=== PATIENT | male | born 1970 | race Hispanic/Latino ===

== ENCOUNTER 2018-07-28 20:44 | Emergency (ER) | payer BC ==
[2018-07-28] MEDS ORDERED: Sodium Chloride 0.9% 1,000 ML IV STA (21:16)
[2018-07-28 21:36] LABS: VENOUS BLOOD GAS BASE EXCESS 4.7 mmol/L (0.0-2.0); VENOUS BLOOD GAS PCO2 51 mmHg (40-60); VENOUS BLOOD GAS PO2 33 mm/Hg (30-55); VENOUS BLOOD PH 7.39 (7.32-7.43)
[2018-07-28] MEDS ORDERED: Potassium CL 10 MEQ/50 ML 50 ML IVPB ONE (21:41)
[2018-07-28 21:51] LABS: BASO # 0.1 K/uL (0.0-0.2); BASO % 0.3 % (0.0-2.0); EOS % 0.2 % (0.0-4.0); LYMPH # 1.8 K/uL (1.0-4.3); LYMPH % 10.6 % (20.0-40.0); MEAN CELL VOLUME 88.9 fl (80.0-94.0); MEAN CORPUSCULAR HEMOGLOBIN 30.5 pg (27.0-31.0); MEAN CORPUSCULAR HGB CONC 34.3 g/dL (33.0-37.0); MEAN PLATELET VOLUME 9.2 fl (7.2-11.7); MONO # 1.7 K/uL (0.0-0.8); MONO % 10.1 % (0.0-10.0); NEUT # 13.4 K/uL (1.8-7.0); NEUT % 78.8 % (50.0-75.0); RBC 4.25 Mil/uL (4.40-5.90); RED CELL DISTRIBUTION WIDTH 12.9 % (11.5-14.5)
[2018-07-28 21:54] LABS: BLOOD UREA NITROGEN 3 mg/dl (9-20); CALCIUM 9.4 mg/dL (8.4-10.2); GFR NON-AFRICAN AMERICAN > 60
[2018-07-28] MEDS ORDERED: Potassium CL 10 MEQ/50 ML 50 ML ONE (22:07)
[2018-07-28 22:09] LABS: PROTHROMBIN TIME 11.9 Seconds (9.8-13.1)
[2018-07-28 22:11] LABS: PARTIAL THROMBOPLASTIN TIME 29.6 Seconds (25.6-37.1)
--- NOTE | 2018-07-28 22:20 | ED PDOC ---
HPI: Hypertension/Hypotension Time Seen by Provider: 07/28/18 21:01 Chief Complaint (Nursing): Palpitations Chief Complaint (Provider): Palpitations History Per: Patient History/Exam Limitations: no limitations Onset/Duration Of Symptoms: Days Current Symptoms Are (Timing): Still Present Additional Complaint(s): 48 y/o male with no significant PMHx presents to the ED for evaluation of palpitations. Patient reports that for the past three days, he has been having issues with nerves and paranoia and has today developed palpitations. Patient states that this is his third ED visit in the past two days and was diagnosed with low potassium and low sodium at [place]. Patient reports palpitations don't feel like it is beating irregularly but it just feels like "neurosis". Otherwise, patient denies chest pain, suicidal ideation, homicidal ideation, drug use and alcohol use. Patient reports of feeling safe in his home. PMD: Amol Rubi Past Medical History Reviewed: Historical Data, Nursing Documentation, Vital Signs Vital Signs: Last Vital Signs Temp Pulse 79 07/28/18 20:54 Resp 16 07/28/18 20:54 BP 147/84 07/28/18 20:54 Pulse Ox 98 07/28/18 20:54 Primary Care Provider: Procedure,Nonphys - Medical History PMH: No Chronic Diseases - Surgical History Surgical History: No Surg Hx - Family History Family History: States: Unknown Family Hx - Living Arrangements Living Arrangements: With Family - Social History Alcohol: None Drugs: Denies - Allergies Allergies/Adverse Reactions: Allergies Allergy/AdvReac Type Severity Reaction Status Date / Time No Known Allergies Allergy Verified 07/28/18 20:54 Review of Systems ROS Statement: Except As Marked, All Systems Reviewed And Found Negative Cardiovascular: Positive for: Palpitations. Negative for: Chest Pain Physical Exam - Reviewed Nursing Documentation Reviewed: Yes Vital Signs Reviewed: Yes - Physical Exam Appears: Positive for: No Acute Distress (but anxious appearing) Head Exam: Positive for: ATRAUMATIC, NORMOCEPHALIC Skin: Negative for: Normal Color (vitiligo) Eye Exam: Positive for: Normal appearance, EOMI, PERRL ENT: Positive for: Normal ENT Inspection Neck: Positive for: Normal, Painless ROM, Supple Cardiovascular/Chest: Positive for: Regular Rate, Rhythm. Negative for: Murmur Respiratory: Positive for: Normal Breath Sounds. Negative for: Respiratory Distress Gastrointestinal/Abdominal: Positive for: Normal Exam, Soft. Negative for: Tenderness Back: Positive for: Normal Inspection. Negative for: L CVA Tenderness, R CVA Tenderness, Vertebral Tenderness Extremity: Positive for: Normal ROM. Negative for: Pedal Edema, Deformity Neurological/Psych: Positive for: Awake, Alert, Oriented. Negative for: Motor/Sensory Deficits - Laboratory Results Result Diagrams: 07/28/18 21:07/28/18 21: Lab Results: pO2 33 mm/Hg (30-55) 07/28/18 21: VBG pH 7.39 (7.32-7.43) 07/28/18: VBG pCO2 51 mmHg (40-60) 07/28/18: VBG HCO3 27.7 mmol/L 07/28/18 21: VBG Total CO2 32.5 mmol/L (22-28) H 07/28/18 21: VBG O2 Sat (Calc) 72.2 % (40-65) H 07/28/18 21: VBG Base Excess 4.7 mmol/L (0.0-2.0) H 07/28/18 21: VBG Potassium 3.4 mmol/L (3.6-5.2) L 07/28/18 21: Sodium 132.0 mmol/L (132-148) 07/28/18 21: Chloride 96.0 mmol/L (98-107) L 07/28/18 21: Glucose 124 mg/dL (75-110) H 07/28/18: Lactate 1.7 mmol/L (0.7-2.1) 07/28/18 21: FiO2 21.0 % 07/28/18 21: PT 11.9 Seconds (9.8-13.1) 07/28/18 21: INR 1.0 07/28/18 21: APTT 29.6 Seconds (25.6-37.1) 07/28/18 21: Troponin I < 0.0120 ng/mL (0.00-0.120) 07/28/18 21: - ECG O2 Sat by Pulse Oximetry: 98 (RA) Pulse Ox Interpretation: Normal Medical Decision Making Medical Decision Making: Time: 2129 A/P: Likely anxiety; Will workup for electrolyte abnormality or cardiac abnormality. 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 Provider Scribe Attestation: All medical record entries made by the Scribe were at my direction and personally dictated by me. I have reviewed the chart and agree that the record accurately reflects my personal performance of the history, physical exam, medical decision making, and the department course for this patient. I have also personally directed, reviewed, and agree with the discharge instructions and disposition. Disposition - Clinical Impression Clinical Impression: Palpitations Counseled Patient/Family Regarding: Studies Performed, Diagnosis, Need For Fol lowup - Disposition Referrals: Dalila Ugalde [Outside] Disposition: Routine/Home Disposition Time: 23:30 Condition: GOOD Instructions: Palpitations Forms: [employer] (Kiswahili)
[2018-07-28 22:45] LABS: BARBITURATES, UR NEGATIVE (NEGATIVE); BENZODIAZEPINES, UR NEGATIVE (NEGATIVE); OPIATES, UR NEGATIVE (NEGATIVE); PHENCYCLIDINE, UR NEGATIVE (NEGATIVE)
[2018-07-28 23:40] VITALS: BP 134/81; PULSE 82; RESP 18; TEMP 98.3
[2018-07-29 03:40] VITALS: O2SAT 98
== END 2018-07-29 00:14 | disposition home or self-care (01) ==
LOC: H.ER 20:44
DX: R00.2 Palpitations (principal); I10 Essential (primary) hypertension; D72.829 Elevated white blood cell count, unspecified
CPT/HCPCS: 80048; 82803; 84484; 85025; 85610; 85730; 99283; G0480; J3480; J7030